=== PATIENT | male | born 1995 | race Caucasian/White ===

== ENCOUNTER 2017-11-03 12:09 | Emergency (ER) | payer OTHER ==
[~2017-11-03] VITALS: Ht 167.6 cm; Wt 86.2 kg
[2017-11-03 12:18] VITALS: Ht 167.6 cm; Wt 86.2 kg
[2017-11-03 12:57] LABS: BASOPHIL % 0.2 % (0-2); PLATELET COUNT 257 x10^3mcL (130-400)
[2017-11-03 13:08] LABS: CALCIUM 8.9 mg/dL (8.5-10.1); CARBON DIOXIDE 25.6 mmol/L (21-32); CHLORIDE SERUM 104 mmol/L (98-107); CREATININE SERUM 1.1 mg/dL (0.7-1.3); GFR1 > 60 mL/min; GLUCOSE SERUM 115 mg/dL (74-106); SODIUM SERUM 140 mmol/L (136-145)
[2017-11-03 13:20] LABS: ALKALINE PHOSPHATASE 81 U/L (46-116); ALT/SGPT 43 U/L (16-63); AST/SGOT 18 U/L (15-37); BILIRUBIN TOTAL 0.39 mg/dL (0.20-1.00); TOTAL PROTEIN, SERUM 7.9 g/dL (6.4-8.2)
[2017-11-03 14:05] LABS: AMPHETAMINE QUAL UR NONE DETECTED (See below)
[2017-11-03 15:17] VITALS: BP 125/61
== END 2017-11-03 15:17 | disposition home or self-care (01) ==
LOC: ED 12:09
PROVIDERS: Emergency Medicine
DX: R00.0 Tachycardia, unspecified (principal); R10.9 Unspecified abdominal pain
CPT/HCPCS: G0480; J2060; J2405; J7030